=== PATIENT | female | born 1975 | race Caucasian/White ===

== ENCOUNTER 2016-11-19 11:34 | Observation (INO) | payer OTHER ==
[~2016-11-19] VITALS: Ht 162.6 cm; Wt 47.6 kg
[2016-11-19] MEDS ORDERED: fentaNYL INJECTION 100 MCG/2 ML AMP ONE (11:39)
[2016-11-19] MEDS ORDERED: ONDANSETRON 4 MG/2 ML (SDV) Z0FRAN ONE (11:45)
[2016-11-19] MEDS ORDERED: NS 100 ML (IVPB) BAG IV ONE (12:00)
[2016-11-19] MEDS ORDERED: IOHEXOL 350 MG/ML 100 ML (OMNIPAQUE 350) VIAL IV ONE (12:00)
[2016-11-19] MEDS ORDERED: fentaNYL INJECTION 100 MCG/2 ML AMP IVP ONE (12:00)
[2016-11-19] MEDS ORDERED: PROMETHAZINE INJ 25 MG/ML (PHENERGAN) AMP ONE (12:00)
[2016-11-19] MEDS ORDERED: PROMETHAZINE INJ 25 MG/ML (PHENERGAN) AMP IVP STA (12:02)
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
[2016-11-19 12:06] LABS: MEAN PLATELET VOLUME 10.8 FL (7.4-10.4); RED BLOOD COUNT 4.34 10^6/uL (4.35-5.85); RED CELL DISTRIBUTION WIDTH 13.4 % (10.0-14.5); WHITE BLOOD COUNT 12.7 10^3/uL (4.3-11.0)
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
[2016-11-19 12:39] LABS: ALANINE AMINOTRANSFERASE 75 U/L (0-55); ALBUMIN 4.2 G/DL (3.2-4.5); ANION GAP 8 MMOL/L (5-14); ASPARTATE AMINO TRANSFERASE 82 U/L (5-34); BILIRUBIN,DIRECT 0.2 MG/DL (0.0-0.3); BILIRUBIN,INDIRECT 0.6 MG/DL; BILIRUBIN,TOTAL 0.8 MG/DL (0.1-1.0); BLOOD UREA NITROGEN 12 MG/DL (7-18); BUN/CREATININE RATIO 16; CALCIUM 8.6 MG/DL (8.5-10.1); CARBON DIOXIDE 26 MMOL/L (21-32); CHLORIDE 105 MMOL/L (98-107); CREATININE SERUM 0.74 MG/DL (0.60-1.30); GFR ESTIMATED > 60; GLUCOSE 137 MG/DL (70-105); POTASSIUM 3.8 MMOL/L (3.6-5.0); SODIUM 139 MMOL/L (135-145); TOTAL PROTEIN 6.4 G/DL (6.4-8.2)
[2016-11-19 12:41] LABS: ALCOHOL < 10 MG/DL (<10)
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
[2016-11-19] MEDS ORDERED: fentaNYL INJECTION 100 MCG/2 ML AMP IVP STA (12:47)
[2016-11-19] MEDS ORDERED: HYDROmorphone (DILAUDID) 2 MG/ML VIAL ONE (12:50)
[2016-11-19] MEDS: HYDROmorphone (DILAUDID) 2 MG/ML VIAL IV PRN ×2 (12:54→19:23)
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
[2016-11-19] MEDS ORDERED: HYDROmorphone (DILAUDID) 2 MG/ML VIAL IV STA (13:05)
[2016-11-19] MEDS ORDERED: NS IV 1000 ML 1,000 ML IV ONE (13:05)
[2016-11-19] MEDS ORDERED: LIDOCAINE/EPI 1%-1:100,000 (XYLOCAINE) 20ML INJ STA (13:05)
[2016-11-19] MEDS ORDERED: TETANUS,DIPTH,PERTUSS P/F (BOOSTRIX) 0.5 ML VIAL IM STA (13:05)
[2016-11-19] MEDS ORDERED: NICOTINE POLACRILEX 2 MG (COMMIT) LOZ MM ONE (14:45)
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
[2016-11-19] MEDS ORDERED: HYDROmorphone (DILAUDID) 2 MG/ML VIAL IVP ONE ×2 (16:00)
[2016-11-19 16:40] VITALS: BP 117/65
[2016-11-19] MEDS: NS IV 1000 ML 1,000 ML IV SCH ×2 (16:45→23:08)
[2016-11-19] MEDS ORDERED: oxyCODONE/APAP 5/325MG (PERCOCET 5) TABLET PO PRN (16:45)
[2016-11-19] MEDS ORDERED: CATHETER FLUSH 10 ML SYR IV PRN (16:45)
[2016-11-19] MEDS ORDERED: HUMIRA SQ (16:57)
[2016-11-19] MEDS ORDERED: FLUO20CA25 PO (16:57)
[2016-11-19] MEDS ORDERED: DIAZ10TA3 PO (16:57)
[2016-11-19] MEDS ORDERED: ESZO2TAB4 PO (16:57)
[2016-11-19] MEDS ORDERED: L.AC1CAP6 PO (17:01)
[2016-11-19] MEDS: oxyCODONE/APAP 10/325MG (PERCOCET 10) TABLET PO PRN ×3 (17:29→23:09)
[2016-11-19] MEDS: ONDANSETRON 4 MG/2 ML (SDV) Z0FRAN IV PRN (17:29)
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
[2016-11-19 20:25] VITALS: BP 98/56
[2016-11-20 00:42] VITALS: BP 96/52
[2016-11-20] MEDS: HYDROmorphone (DILAUDID) 2 MG/ML VIAL IV PRN ×2 (01:16→10:28)
[2016-11-20] MEDS: ONDANSETRON 4 MG/2 ML (SDV) Z0FRAN IV PRN (01:29)
[2016-11-20] MEDS: oxyCODONE/APAP 10/325MG (PERCOCET 10) TABLET PO PRN ×2 (03:05→06:55)
[2016-11-20 04:30] VITALS: BP 98/55
[2016-11-20 05:53] LABS: BASOPHILS % (AUTO) 0 % (0-10); EOSINOPHILS # (AUTO) 0.1 10^3/uL (0.0-0.3); EOSINOPHILS % (AUTO) 1 % (0-10); LYMPHOCYTES # (AUTO) 2.2 X 10^3 (1.0-4.0); LYMPHOCYTES % (AUTO) 26 % (12-44); MEAN CORPUSCULAR HEMOGLOBIN 29 PG (25-34); MEAN CORPUSCULAR HGB CONC 32 G/DL (32-36); MEAN CORPUSCULAR VOLUME 88 FL (80-99); MEAN PLATELET VOLUME 10.8 FL (7.4-10.4); MONOCYTES # (AUTO) 1.1 X 10^3 (0.0-1.0); MONOCYTES % (AUTO) 13 % (0-12); NEUTROPHILS # (AUTO) 5.1 X 10^3 (1.8-7.8); NEUTROPHILS % (AUTO) 60 % (42-75); PLATELET COUNT 172 10^3/uL (130-400); RED BLOOD COUNT 3.68 10^6/uL (4.35-5.85); RED CELL DISTRIBUTION WIDTH 13.6 % (10.0-14.5); WHITE BLOOD COUNT 8.5 10^3/uL (4.3-11.0)
[2016-11-20 06:16] LABS: ALANINE AMINOTRANSFERASE 48 U/L (0-55); ALBUMIN 3.4 G/DL (3.2-4.5); ANION GAP 8 MMOL/L (5-14); ASPARTATE AMINO TRANSFERASE 54 U/L (5-34); BILIRUBIN,TOTAL 0.9 MG/DL (0.1-1.0); BLOOD UREA NITROGEN 6 MG/DL (7-18); BUN/CREATININE RATIO 9; CALCIUM 7.8 MG/DL (8.5-10.1); CARBON DIOXIDE 22 MMOL/L (21-32); CHLORIDE 109 MMOL/L (98-107); CREATININE SERUM 0.65 MG/DL (0.60-1.30); GFR ESTIMATED > 60; GLUCOSE 104 MG/DL (70-105); POTASSIUM 3.6 MMOL/L (3.6-5.0); SODIUM 139 MMOL/L (135-145); TOTAL PROTEIN 5.1 G/DL (6.4-8.2)
[2016-11-20] MEDS: NS IV 1000 ML 1,000 ML IV SCH (06:55)
[2016-11-20 08:00] VITALS: BP 103/58
[2016-11-20] MEDS ORDERED: DOCU-143 PO (08:09)
[2016-11-20] MEDS ORDERED: OXYC-465 PO (08:09)
--- NOTE | 2016-11-20 08:15 | Discharge Inst-Surgical ---
Discharge Inst-Surgical Depart Medication/Instructions New, Converted or Re-Newed RX: RX Given to Pt/Family Patient Instructions Follow up Appt: Make appointment with Orthopedic surgeon in [place] today. Instructions: No lifting greater than 10 pounds. No strenuous activity. May shower in 24 hours, no tub bath or soaking. Use incentive spirometer at home as directed. No Smoking Skin/Wound Care: May remove bandages. Symptoms to Report: Appetite Changes, Extremity Discoloration, Numbness/Tingling, Swelling Increased , Bleeding Excessive, Eyesight Changes, Pain Increased, Urine Color Change, Constipation(Persistent), Fever over 101 degree F, Pain/Pressure in chest, Urinating Difficulty, Cough Up/Vomit Blood, Heart Beat Irreg/Pounding, Pain/ Pressure in jaw, Vaginal Bleeding Increase, Cramps in feet or legs, Lightheadedness, Pain/Pressure in shoulder, Diarrhea(Persistent), Memory Changes Suddenly, Questions/Concerns, Weight gain consecutive days, Dizziness/ Fainting, Nausea/Vomiting, Shortness of Breath, Weight gain over 2 pounds If questions or concerns contact your physician Or seek help at emergency department. Activity Activity as Tolerated: Yes Walking Assistive Device: Walker Driving Instructions: No Driving/Refer to Dr. Hawkins Discharge Diet: No Restrictions TRANG OAKLEY DO Nov 20, 2016 08:15
[2016-11-20] MEDS ORDERED: WALK1EAC23 MC (08:18)
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
[2016-11-20] MEDS ORDERED: PROMETHAZINE INJ 25 MG/ML (PHENERGAN) AMP IVP NR (08:30)
[2016-11-20 10:40] VITALS: BP 103/58
== END 2016-11-20 08:10 | disposition home or self-care (01) ==
LOC: ER 11:39 → INTOOBSV 15:50 → UNDOADMOB 15:50 → 4TH 15:50 → UNDODISOB 11-20 10:40
PROVIDERS: ADMIT Surgery; ATTEND Surgery
DX: S82.841A Displaced bimalleolar fracture of right lower leg, initial encounter for closed fracture (principal); S32.19XA Other fracture of sacrum, initial encounter for closed fracture; S22.41XA Multiple fractures of ribs, right side, initial encounter for closed fracture; S91.011A Laceration without foreign body, right ankle, initial encounter; Z23 Encounter for immunization; V44.5XXA Car driver injured in collision with heavy transport vehicle or bus in traffic accident, initial encounter
CPT/HCPCS: 29515; 36415; 70450; 71010; 71260; 72125; 72170; 73080; 73130; 73610; 74177; 80048; 80053; 80076; 80320; 84703; 85025; 85027; 86850; 86900; 86901; 90471; 90715; 93041; 94664; 94760; 96374; 96375; 96376; 99291; 99292; G0378